=== PATIENT | female | born 1955 | race African-American/Black ===

== ENCOUNTER 2023-12-17 10:52 | Day surgery (SDC) | payer BC, SELFPAY ==
[2023-12-17] VITALS (9 sets, daily range): BP systolic 106–137; BP diastolic 67–87; BMI 34.9
[2023-12-17] MEDS: NSS 294 ML IV (11:46)
--- NOTE | 2023-12-17 16:10 | ITS.CL.CATH ---
Seam Closer - Catheterization
Cardiac Catheterization
Procedure Report:
CARDIAC CATHETERIZATION REPORT
Date of Procedure: 12/17/2023
Referring: Louis Wright DO
Indication: Chest pain and shortness of breath with exertion
HEMODYNAMIC DATA
AO: 125/76
LV: 125/12
LEFT VENTRICULOGRAPHY: Normal left ventricular wall motion with EF 64%
CORONARY ANGIOGRAPHY
Dominance: Right
Left Main: Normal
LAD: Trivial luminal irregularities
Circumflex: Normal
RCA: Dominant vessel with trivial luminal irregularities
Closure Device: None-the procedure was performed via the right radial artery. Of note, selective engagement of the left coronary was challenging and after a single MITCHELL caudal view the catheter prolapsed and there was significant innominate spasm
such that further angiography from the right radial approach was not possible. I did not wish to subject the patient to a femoral puncture as the left coronary vessels were well-visualized on the initial injection and the right coronary artery had
been selectively engaged with the JL 4
Radiation (mGy): 270
DAP (cm2.Gy): 21.5
Fluoroscopy time: 9.5 minutes
CONCLUSIONS
1: Normal left ventricular wall motion with EF 64%
2: No evidence of significant CAD
3. Normal LVEDP
Copy to: Louis Wright DO, Laxmi Nova MD
Wallace Jack MD, [facility], [facility]
[2023-12-17] MEDS: NSS 1000 IV (16:55)
== END 2023-12-17 19:00 | disposition home or self-care (01) ==
LOC: CATH 10:52
PROVIDERS: ATTENDING PHYSICIAN Internal Medicine Cardiovascular Disease; FAMILY PHYSICIAN Family Medicine; OTHER PHYSICIAN Internal Medicine Cardiovascular Disease
DX: R07.9 Chest pain, unspecified (principal); R06.02 Shortness of breath; I10 Essential (primary) hypertension; J44.9 Chronic obstructive pulmonary disease, unspecified
CPT/HCPCS: 93458; C1894; Q9967